=== PATIENT | female | born 2000 | race Caucasian/White ===

== ENCOUNTER 2023-06-22 00:15 | Emergency (ER) | payer MEDICAID ==
[~2023-06-22] VITALS: Ht 160 cm; Wt 54.4 kg
[2023-06-22 00:23] VITALS: BP 93/60; PULSE 76; RESP 18; TEMP 97.7; O2SAT 97
[2023-06-22 03:06] VITALS: O2SAT 97
[2023-06-22 04:03] LABS: APPEARANCE,URINE CLEAR (CLEAR); BILIRUBIN,URINE NEGATIVE (NEGATIVE); BLOOD, URINE NEGATIVE (NEGATIVE); COLOR,URINE YELLOW (YELLOW); LEUKOCYTE ESTERASE ,URINE NEGATIVE (NEGATIVE); NITRITE, URINE NEGATIVE (NEGATIVE); PROTEIN,URINE NEGATIVE (NEGATIVE); UGLUCOSE NEGATIVE (NEGATIVE); UROBILINOGEN,URINE 0.2 EU/dL (0.2 - 1)
[2023-06-22] MEDS ORDERED: KETOROLAC 30 MG/ML VIAL IM ONE (04:30)
[2023-06-22] MEDS ORDERED: METR-435 PO (04:56)
[2023-06-22] MEDS ORDERED: NAPR-1704 PO (04:56)
== END 2023-06-22 05:18 | disposition home or self-care (01) ==
LOC: EDBD 00:15 → MED 00:15
DX: N76.0 Acute vaginitis (principal); B96.89 Other specified bacterial agents as the cause of diseases classified elsewhere; R50.9 Fever, unspecified; R51.9 Headache, unspecified; Z79.899 Other long term (current) drug therapy
CPT/HCPCS: 81003; 81025; 87210; 96372; 99283; J1885